=== PATIENT | female | born 1960 | race Caucasian/White ===

== ENCOUNTER → 2022-01-02 | Outpatient (CLI) | payer MEDICAID, OTHER | LOC: M WHC 11:09 | PROVIDERS: ATTEND Nurse Practitioner Family | DX: M85.851 Other specified disorders of bone density and structure, right thigh (principal); M85.852 Other specified disorders of bone density and structure, left thigh ==

== ENCOUNTER → 2022-01-16 | Outpatient (REF) | payer OTHER ==
[2022-01-16 17:26] LABS: BLOOD UREA NITROGEN 16 MG/DL (7-18); CALCIUM LEVEL 9.5 MG/DL (8.8-10.2); CARBON DIOXIDE LEVEL 29 MEQ/L (21-32); CHLORIDE LEVEL 100 MEQ/L (98-107); CREATININE FOR GFR 0.86 MG/DL (0.55-1.30); GLOMERULAR FILTRATION RATE > 60.0 (>45); GLUCOSE, FASTING 340 MG/DL (70-100); POTASSIUM SERUM 4.4 MEQ/L (3.5-5.1); SODIUM LEVEL 136 MEQ/L (136-145)
== END ==
LOC: M LAB REF 16:45
PROVIDERS: ATTEND Nurse Practitioner Family
DX: E87.1 Hypo-osmolality and hyponatremia (principal)

== ENCOUNTER → 2022-05-01 | Outpatient (REF) | payer OTHER, MEDICAID ==
[2022-05-01 15:22] LABS: CHOLESTEROL RISK RATIO 2.541 (<5)
== END ==
LOC: M LAB REF 13:17
PROVIDERS: ATTEND Nurse Practitioner Family
DX: E11.65 Type 2 diabetes mellitus with hyperglycemia (principal)

== ENCOUNTER 2022-06-22 02:14 | Emergency (ER) | payer MEDICAID, OTHER ==
[2022-06-22 02:45] LABS: BASO % 0.6 % (0.0-1.0); EOS # 0.2 10^3/uL (0.0-0.5); EOS % 2.6 % (0.0-3.0); HEMATOCRIT 33.4 % (36.0-47.0); HEMOGLOBIN 12.1 g/dl (12.0-15.5); LYMPH # 2.2 10^3/uL (1.5-5.0); LYMPH % 32.9 % (24.0-44.0); MEAN CORPUSCULAR HEMOGLOBIN 30.9 pg (27.0-33.0); MEAN CORPUSCULAR HGB CONC 36.2 g/dl (32.0-36.5); MEAN CORPUSCULAR VOLUME 85.2 fl (80.0-96.0); MONO # 0.6 10^3/uL (0.0-0.8); MONO % 8.8 % (2.0-8.0); NEUTROPHILS # 3.7 10^3/uL (1.5-8.5); NEUTROPHILS % 54.5 % (36.0-66.0); PLATELET COUNT, AUTOMATED 229 10^3/uL (150-450); RED BLOOD COUNT 3.92 10^6/uL (4.00-5.40); WHITE BLOOD COUNT 6.8 10^3/uL (4.0-10.0)
[2022-06-22 03:16] LABS: RSV AMPLIFICATION NEGATIVE (NEGATIVE)
[2022-06-22 03:57] LABS: BLOOD UREA NITROGEN 14 MG/DL (9-23); CALCIUM LEVEL 8.7 MG/DL (8.3-10.6); CARBON DIOXIDE LEVEL 26 MMOL/L (20-31); CHLORIDE LEVEL 93 MMOL/L (98-107); CREATININE FOR GFR 0.61 MG/DL (0.55-1.30); GLOMERULAR FILTRATION RATE > 60.0 (>45); GLUCOSE, FASTING 604 MG/DL (74-106); POTASSIUM SERUM 3.5 MMOL/L (3.5-5.1); SODIUM LEVEL 127 MMOL/L (136-145); THYROID STIMULATING HORMONE 4.779 uIU/ML (0.55-4.78)
[2022-06-22] MEDS ORDERED: HumuLIN R (REGULAR) INSULIN (NovoLIN R) **100U/ML** PER UNIT SC STA (04:29)
[2022-06-22] MEDS ORDERED: NEOSPORIN OINT 0.9 GM PKT TOP ONE (04:30)
[2022-06-22 06:11] VITALS: BP 138/78
== END 2022-06-22 06:12 | disposition home or self-care (01) ==
LOC: EDBD 02:14 → M ED 02:14
DX: S00.03XA Contusion of scalp, initial encounter (principal); W01.190A Fall on same level from slipping, tripping and stumbling with subsequent striking against furniture, initial encounter; Y92.098 Other place in other non-institutional residence as the place of occurrence of the external cause; I10 Essential (primary) hypertension; E11.9 Type 2 diabetes mellitus without complications; Z87.820 Personal history of traumatic brain injury; Z88.0 Allergy status to penicillin; Z88.8 Allergy status to other drugs, medicaments and biological substances; Z88.1 Allergy status to other antibiotic agents; Z79.899 Other long term (current) drug therapy
CPT/HCPCS: 70450; 70486; 71045; 72125; 80047; 80048; 84443; 85025; 87631; 93005; 99284; J1815

== ENCOUNTER → 2022-08-26 | Outpatient (REF) | payer OTHER, MEDICAID ==
[2022-08-26 15:15] LABS: BLOOD UREA NITROGEN 17 MG/DL (9-23); CALCIUM LEVEL 9.5 MG/DL (8.3-10.6); CARBON DIOXIDE LEVEL 29 MMOL/L (20-31); CHLORIDE LEVEL 101 MMOL/L (98-107); CREATININE FOR GFR 0.77 MG/DL (0.55-1.30); GLOMERULAR FILTRATION RATE > 60.0 (>45); GLUCOSE, FASTING 229 MG/DL (74-106); POTASSIUM SERUM 3.9 MMOL/L (3.5-5.1); SODIUM LEVEL 136 MMOL/L (136-145)
[2022-08-26 15:51] LABS: HEMOGLOBIN A1c 10.8 % (4.0-6.0)
== END ==
LOC: M LAB REF 13:05
PROVIDERS: ATTEND Nurse Practitioner Family
DX: E11.65 Type 2 diabetes mellitus with hyperglycemia (principal)

== ENCOUNTER → 2022-09-23 | Outpatient (CLI) | payer OTHER | LOC: M CARPUL 11:08 | PROVIDERS: ATTEND Nurse Practitioner Family | DX: R01.1 Cardiac murmur, unspecified (principal) ==

== ENCOUNTER → 2022-12-01 | Outpatient (REF) | payer OTHER, MEDICAID ==
[2022-12-01 17:07] LABS: BLOOD UREA NITROGEN 21 MG/DL (9-23); CALCIUM LEVEL 9.4 MG/DL (8.3-10.6); CARBON DIOXIDE LEVEL 29 MMOL/L (20-31); CHLORIDE LEVEL 101 MMOL/L (98-107); CREATININE FOR GFR 0.79 MG/DL (0.55-1.30); GLOMERULAR FILTRATION RATE > 60.0 (>45); GLUCOSE, FASTING 125 MG/DL (74-106); IRON (FE) 115 UG/DL (50-170); PERCENT SATURATION 30.7 % (13.2-45.0); SODIUM LEVEL 136 MMOL/L (136-145); TOTAL IRON BINDING CAPACITY 374 UG/DL (250-425)
[2022-12-01 17:08] LABS: VITAMIN B12 LEVEL 233 PG/ML (211-911)
[2022-12-01 17:09] LABS: THYROID STIMULATING HORMONE 2.304 uIU/ML (0.55-4.78)
[2022-12-01 17:10] LABS: BASO # 0.1 10^3/uL (0.0-0.2); BASO % 0.7 % (0.0-1.0); EOS # 0.1 10^3/uL (0.0-0.5); EOS % 1.6 % (0.0-3.0); HEMATOCRIT 44.3 % (36.0-47.0); HEMOGLOBIN 14.9 g/dl (12.0-15.5); LYMPH # 1.8 10^3/uL (1.5-5.0); MEAN CORPUSCULAR HGB CONC 33.6 g/dl (32.0-36.5); MEAN CORPUSCULAR VOLUME 92.1 fl (80.0-96.0); MONO # 0.5 10^3/uL (0.0-0.8); MONO % 7.8 % (2.0-8.0); NEUTROPHILS # 4.3 10^3/uL (1.5-8.5); NEUTROPHILS % 62.8 % (36.0-66.0); PLATELET COUNT, AUTOMATED 252 10^3/uL (150-450); RED BLOOD COUNT 4.81 10^6/uL (4.00-5.40); WHITE BLOOD COUNT 6.8 10^3/uL (4.0-10.0)
== END ==
LOC: M LAB REF 16:04
PROVIDERS: ATTEND Nurse Practitioner Family
DX: I10 Essential (primary) hypertension (principal); R20.2 Paresthesia of skin

== ENCOUNTER → 2023-03-12 | Outpatient (REF) | payer OTHER, MEDICAID ==
[2023-03-12 12:56] LABS: BLOOD UREA NITROGEN 20 MG/DL (9-23); CALCIUM LEVEL 9.1 MG/DL (8.3-10.6); CARBON DIOXIDE LEVEL 29 MMOL/L (20-31); CHLORIDE LEVEL 105 MMOL/L (98-107); CREATININE FOR GFR 0.69 MG/DL (0.55-1.30); GLOMERULAR FILTRATION RATE > 60.0 (>45); GLUCOSE, FASTING 155 MG/DL (74-106); POTASSIUM SERUM 4.1 MMOL/L (3.5-5.1); SODIUM LEVEL 139 MMOL/L (136-145)
== END ==
LOC: M LAB REF 12:10
PROVIDERS: ATTEND Nurse Practitioner Family
DX: I95.9 Hypotension, unspecified (principal)

== ENCOUNTER → 2023-12-17 | Outpatient (REF) | payer OTHER, MEDICAID ==
[2023-12-18 14:07] LABS: CREATININE, URINE 68.8 MG/DL
[2023-12-18 14:08] LABS: MAU/CREAT RATIO 23.2 MCG/MG (0.0-30.0)
== END ==
LOC: M LAB REF 12:29
PROVIDERS: ATTEND Nurse Practitioner Family
DX: E11.65 Type 2 diabetes mellitus with hyperglycemia (principal)

== ENCOUNTER → 2024-02-25 | Outpatient (REF) | payer OTHER, MEDICAID ==
[2024-02-25 12:59] LABS: BLOOD UREA NITROGEN 19 MG/DL (9-23); CALCIUM LEVEL 9.6 MG/DL (8.3-10.6); CARBON DIOXIDE LEVEL 30 MMOL/L (20-31); CHLORIDE LEVEL 105 MMOL/L (98-107); CHOLESTEROL LEVEL 170 MG/DL (<200); CHOLESTEROL RISK RATIO 2.28 (<5); CREATININE FOR GFR 0.79 MG/DL (0.55-1.30); GLOMERULAR FILTRATION RATE > 60.0 (>45); GLUCOSE, FASTING 130 MG/DL (74-106); HDL CHOLESTEROL 74.3 MG/DL (>40); LDL CHOLESTEROL 78.3 MG/DL (<100); NON-HDL-C 95.7 MG/DL; POTASSIUM SERUM 3.5 MMOL/L (3.5-5.1); SODIUM LEVEL 140 MMOL/L (136-145); TRIGLYCERIDES LEVEL 87 MG/DL (<150)
[2024-02-25 13:01] LABS: TOTAL 25(OH) VITAMIN D 32.6 NG/ML (20.0-100.0)
[2024-02-25 13:26] LABS: HEMOGLOBIN A1c 5.3 % (4.0-6.0)
== END ==
LOC: M LAB REF 12:34
PROVIDERS: ATTEND Nurse Practitioner Family
DX: I10 Essential (primary) hypertension (principal); E55.9 Vitamin D deficiency, unspecified; E11.65 Type 2 diabetes mellitus with hyperglycemia